=== PATIENT | male | born 1995 ===

== ENCOUNTER 2018-01-10 14:35 | Emergency (ER) | payer OTHER ==
[~2018-01-10] VITALS: Ht 182.9 cm; Wt 67.0 kg
[2018-01-10 14:44] VITALS: BP 117/56
[2018-01-10] MEDS ORDERED: BACITRACIN ZINC OINT 500U/GM, 0.9 GM ONE (15:08)
== END 2018-01-10 16:16 | disposition home or self-care (01) ==
LOC: ED 16:00
DX: S50.312A Abrasion of left elbow, initial encounter (principal); S50.311A Abrasion of right elbow, initial encounter; S80.212A Abrasion, left knee, initial encounter; S80.211A Abrasion, right knee, initial encounter; S30.811A Abrasion of abdominal wall, initial encounter; V27.4XXA Motorcycle driver injured in collision with fixed or stationary object in traffic accident, initial encounter; Y93.89 Activity, other specified; Y92.89 Other specified places as the place of occurrence of the external cause; Y99.8 Other external cause status
CPT/HCPCS: 99283